=== PATIENT | female | born 1980 | race Caucasian/White ===

== ENCOUNTER 2022-09-20 08:45 | Inpatient (IN) | payer MEDICAID ==
[2022-10-21] MEDS ORDERED: Acetaminophen 500 MG Tab PO ONE (05:30)
[2022-10-21] MEDS ORDERED: Scopolamine 1.5 MG Transdermal Patch TOP SCH (05:30)
[2022-10-21] MEDS ORDERED: Celecoxib 200 MG Cap PO ONE (05:30)
[2022-10-21] MEDS ORDERED: Dextrose 5%-Lactated Ringers 1,000 ML IV SCH ×2 (06:30→13:00)
[2022-10-21] MEDS ORDERED: Neostigmine Methylsulfate 1 MG/ML 5 ML Syringe ONE (07:06)
[2022-10-21] MEDS ORDERED: Glycopyrrolate 0.2 MG/ML 5 ML MDV ONE (07:06)
[2022-10-21] MEDS ORDERED: Propofol 200 MG/20 ML SDV ONE (07:06)
[2022-10-21] MEDS ORDERED: Succinylcholine 200 MG/10 ML MDV ONE (07:06)
[2022-10-21] MEDS ORDERED: fentaNYL 250 MCG/5 ML SDV ONE (07:06)
[2022-10-21] MEDS ORDERED: Rocuronium 50 MG/5 ML Vial ONE (07:06)
[2022-10-21] MEDS ORDERED: Ondansetron 4 MG/2 ML SDV ONE (07:06)
[2022-10-21] MEDS ORDERED: Dexamethasone 4 MG/ML SDV ONE (07:06)
[2022-10-21] MEDS ORDERED: Lactated Ringers 1,000 ML ONE (07:10)
[2022-10-21] MEDS ORDERED: cefOXitin 2 GM in Sodium Chloride 0.9% 50 ML IV ONE (07:15)
[2022-10-21 07:29] LABS: ESTIMATED GFR 111 mL/min (>60)
[2022-10-21] MEDS ORDERED: Ketamine 500 MG/5 ML MDV IV SCH (07:30)
[2022-10-21] MEDS ORDERED: Ketamine 15 MG in Sodium Chloride 0.9% 19.85 ML IV SCH (07:30)
[2022-10-21] MEDS: cefOXitin 2 GM Vial ONE ×2 (09:47→10:25)
[2022-10-21] MEDS ORDERED: fentaNYL 100 MCG/2 ML SDV ONE (10:46)
[2022-10-21] MEDS ORDERED: hydrOXYzine HCL 100 MG/2 ML SDV IM ONE (11:17)
[2022-10-21] MEDS ORDERED: Ondansetron 4 MG/2 ML SDV IVPUSH ONE (11:47)
[2022-10-21] MEDS ORDERED: HYDROmorphone 1 MG/ML Syringe IV PRN (12:48)
[2022-10-21] MEDS ORDERED: HYDROmorphone 0.5 MG/0.5 ML Syringe IVPUSH PRN (12:48)
[2022-10-21] MEDS ORDERED: Cyclobenzaprine 10 MG Tab PO PRN (12:49)
[2022-10-21] MEDS ORDERED: oxyCODONE 5 MG Tab PO PRN (13:00)
[2022-10-21] MEDS ORDERED: diphenhydrAMINE 50 MG/ML SDV IVPUSH PRN (13:00)
[2022-10-21] MEDS ORDERED: Ondansetron 4 MG/2 ML SDV IVPUSH PRN (13:00)
[2022-10-21] MEDS ORDERED: Metoclopramide 10 MG/2 ML SDV IVPUSH PRN (13:00)
[2022-10-21] MEDS ORDERED: Labetalol 20 MG/4 ML Syringe IVPUSH PRN (13:00)
[2022-10-21] MEDS ORDERED: Acetaminophen 500 MG Tab PO PRN (13:00)
[2022-10-21] MEDS ORDERED: hydrOXYzine HCL 100 MG/2 ML SDV IM PRN (13:00)
[2022-10-21] MEDS: Acetaminophen 500 MG Tab PO SCH ×2 (14:28→21:08)
[2022-10-21] MEDS: MVI, Adult with Vitamin K 10 ML, Thiamine 200 MG, Zinc/Copper/Manganese/Selenium 1 ML i... IV SCH ×8 (14:29→15:26)
[2022-10-21] MEDS: cefOXitin 2 GM in Sodium Chloride 0.9% 50 ML IV SCH ×2 (14:29→21:08)
[2022-10-21] MEDS: Pantoprazole 40 MG Vial IVPUSH SCH (14:37)
[2022-10-21] MEDS: Heparin Sodium 5,000 Units/ML Vial SUBCUT SCH (18:02)
[2022-10-21] MEDS: traMADol 50 MG Tab PO PRN (18:11)
[2022-10-22] MEDS: cefOXitin 2 GM in Sodium Chloride 0.9% 50 ML IV SCH ×4 (02:35→21:56)
[2022-10-22] MEDS ORDERED: Iopamidol 612 MG/ML 50 ML SDV PO ONE (04:00)
[2022-10-22] MEDS: Acetaminophen 500 MG Tab PO SCH ×3 (05:26→21:54)
[2022-10-22] MEDS: Heparin Sodium 5,000 Units/ML Vial SUBCUT SCH ×2 (05:26→17:48)
[2022-10-22] MEDS ORDERED: Dextrose 5%-Lactated Ringers 1,000 ML IV SCH (08:15)
[2022-10-22] MEDS: Celecoxib 200 MG Cap PO SCH ×2 (08:35→21:56)
[2022-10-22] MEDS: SCOPOLAMINE PATCH CHECK TOP SCH (08:47)
[2022-10-22] MEDS: traMADol 50 MG Tab PO PRN (12:28)
[2022-10-22] MEDS: Pantoprazole 40 MG Vial IVPUSH SCH (15:08)
[2022-10-22] MEDS ORDERED: MVI, Adult with Vitamin K 10 ML, Thiamine 200 MG, Zinc/Copper/Manganese/Selenium 1 ML i... IV SCH ×4 (16:00)
[2022-10-23] MEDS: Heparin Sodium 5,000 Units/ML Vial SUBCUT SCH (05:16)
[2022-10-23] MEDS: Acetaminophen 500 MG Tab PO SCH (05:16)
[2022-10-23] MEDS: Celecoxib 200 MG Cap PO SCH (08:41)
[2022-10-23] MEDS: SCOPOLAMINE PATCH CHECK TOP SCH (08:41)
[2022-10-23] MEDS ORDERED: Cyanocobalamin (Vitamin B12) 1,000 MCG/ML SDV IM ONE (09:00)
[2022-10-23] MEDS ORDERED: Magnesium Hydroxide 400 MG/5 ML Susp 30 ML Cup PO ONE (11:21)
== END 2022-10-23 13:09 | disposition still patient (30) | DRG 619 ==
LOC: JP.SDSSCHI 10-21 06:33 → JP.MS 10-21 10:55
PROVIDERS: ADMIT Surgery; ATTEND Surgery
PROC: 0D164ZA Bypass Stomach to Jejunum, Percutaneous Endoscopic Approach (ICD-10-PCS; principal; 2022-10-21)
PROC: 0FB24ZX Excision of Left Lobe Liver, Percutaneous Endoscopic Approach, Diagnostic (ICD-10-PCS; 2022-10-21)
PROC: 0BQT4ZZ Repair Diaphragm, Percutaneous Endoscopic Approach (ICD-10-PCS; 2022-10-21)
PROC: 0DB64ZZ Excision of Stomach, Percutaneous Endoscopic Approach (ICD-10-PCS; 2022-10-21)
DX: E66.01 Morbid (severe) obesity due to excess calories (principal); K55.059 Acute (reversible) ischemia of intestine, part and extent unspecified; Z68.43 Body mass index [BMI] 50.0-59.9, adult; G47.33 Obstructive sleep apnea (adult) (pediatric); R16.0 Hepatomegaly, not elsewhere classified; K44.9 Diaphragmatic hernia without obstruction or gangrene; N97.9 Female infertility, unspecified; L71.9 Rosacea, unspecified; Z79.899 Other long term (current) drug therapy; Z88.5 Allergy status to narcotic agent
CPT/HCPCS: 36415; 74240; 74240-26; 80053; 83735; 84100; 85027; 86850; 86900; 86901; 88307; 88313; 97010-GP; A9270-GY; C9113; J0171; J0330; J0694; J1100; J1170; J1644; J2405; J2704; J2710; J2795; J3010; J3410; J3411; J3420; J3490; J7120; J7121; Q9967